=== PATIENT | female | born 1990 | race Caucasian/White ===

== ENCOUNTER 2017-01-01 15:08 | Observation (INO) | payer OTHER ==
[2017-01-01] MEDS ORDERED: Famotidine IV* 10 MG/ML 2 ML (20 mg) IV SLOW PU ONE (15:23)
[2017-01-01] MEDS ORDERED: diPHENhydraMINE IV* 50 MG/ML 1 ml VIAL (BENADRYL) IV ONE (15:24)
[2017-01-01] MEDS ORDERED: methylPREDNISolone SOD SUCC* 125 MG 2 ML VIAL IV ONE (15:33)
--- NOTE | 2017-01-01 18:55 | ED ---
Kb Cee Salem, scribed for Kwadwo Del Toro MD on 01/01/17 at 1520 . Allergic Reaction/Systemic - HPI Summary HPI Summary: Patient is a 26 y/o female who presents to the ED per EMS with an allergic reaction since a few hours ago. She states she received an allergy injection and felt her throat tighten following it. She reports she received 0.6 epi SC, Glucagon 100mL IM, Benadryl 50mg IM, Celestone 100mL and Xopenex nebulizer 0.63 DIRECTOR TRANSPORTATION. Pt reports no other sx. She states that there is a small chance she may be . PMHx of panic disorder. - History of Current Complaint Chief Complaint: EDAllergicReaction Time Seen by Provider: 01/01/17 15:14 Hx Obtained From: Patient Hx Last Menstrual Period: 2 WEEKS AGO Onset/Duration: Gradual Onset, Started hours ago, Still Present Timing: Constant Severity Initially: Moderate Severity Currently: Moderate Pain Intensity: 0 Pain Scale Used: 0-10 Numeric Location: Discrete @ - Throat. Aggravating Factor(s): Nothing Alleviating Factor(s): Antihistamines, Epinephrine Associated Signs And Symptoms: Positive: Throat Tightening - Allergies/Home Medications Allergies/Adverse Reactions: Allergies Allergy/AdvReac Type Severity Reaction Status Date / Time No Known Allergies Allergy Verified 08/14/15 20:24 PMH/Surg Hx/FS Hx/Imm Hx Respiratory History: Reports: Hx Asthma Sensory History: Reports: Hx Contacts or Glasses Denies: Hx Hearing Aid Opthamlomology History: Reports: Hx Contacts or Glasses Psychiatric History: Reports: Hx Anxiety, Hx Panic Disorder, Other Psychiatric Issues/Disorders - anxiety - Surgical History Surgery Procedure, Year, and Place: LABIAL HEMATOMA-2005, TONSILLECTOMY, CHOLECYSTECTOMY Hx Anesthesia Reactions: No Infectious Disease History: No Infectious Disease History: Denies: Traveled Outside the [place] in Last 30 Days - Family History Known Family History: Positive: Cardiac Disease, Hypertension, Diabetes, Other - Allergies. Family History: FHx of HLD - Social History Alcohol Use: None Hx Substance Use: No Substance Use Type: Reports: None Hx Tobacco Use: No Smoking Status (MU): Never Smoked Tobacco Have You Smoked in the Last Year: No Review of Systems Negative: Fever Positive: Other - Throat tightening. All Other Systems Reviewed And Are Negative: Yes Physical Exam - Summary Physical Exam Summary: The patient has no rash, no hives, no respiratory distress. She has a clear voice without hoarseness or drooling. Lips and tongue normal size. Triage Information Reviewed: Yes Vital Signs On Initial Exam: Initial Vitals Temp Pulse Resp BP Pulse Ox 98.2 F 122 20 163/89 100 01/01/17 15:10 01/01/17 15:10 01/01/17 15:10 01/01/17 15:10 01/01/17 15:10 Vital Signs Reviewed: Yes Appearance: Positive: Well-Appearing, No Pain Distress Skin: Positive: Warm Head/Face: Positive: Normal Head/Face Inspection Eyes: Positive: Normal, EOMI Neck: Positive: Supple, Nontender Respiratory/Lung Sounds: Positive: Clear to Auscultation, Breath Sounds Present Cardiovascular: Positive: Tachycardia. Negative: Murmur Abdomen Description: Positive: Nontender Musculoskeletal: Positive: Normal, Strength/ROM Intact Neurological: Positive: Normal, Sensory/Motor Intact, Alert, Oriented to Person Place, Time, CN Intact II-III Psychiatric: Positive: Normal - [place] Coma Scale Coma Scale Total: 15 Diagnostics - Vital Signs Vital Signs Temp Pulse Resp BP Pulse Ox 01/01/17 15:16 98.2 F 122 18 122/74 97 01/01/17 15:10 98.2 F 122 20 163/89 100 - Laboratory Lab Statement: Any lab studies that have been ordered have been reviewed, and results considered in the medical decision making process. - EKG 1517 EKG Interpretation: Sinus tachycardia @ 126 bpm. No STEMI. Re-Evaluation - Re-Evaluation First Eval Re-Evaluation Time: 15:37 Comment: the patient received 6 mg betamethsone IM per pile [facility] office. I discussed with out pharmacist. He states this is equivalent to 32mg solumedrol. She received this IM and it is variable in absorption that way. Therefore I am ordering 125mg of solumedrol IV at this time. Second Eval Re-Evaluation Time: 16:20 Third Eval Re-Evaluation Time: 17:11 Allergic Reaction Course/Dx - Course Course Of Treatment: 26 y/o female presents with throat tightening after an allergy injection. She reports she received 0.6 epi SC, glucagon 100mL IM, Benadryl 50mg IM, Celestone 100mL and Xopenex nebulizer 0.63 DIRECTOR TRANSPORTATION. She received Famotidine, Diphenhydramine, and Methylprednisolone in the ED. EKG reveals sinus tachycardia @ 126 bpm and no STEMI. - Diagnoses Provider Diagnoses: Anaphylactic reaction - Critical Care Time Critical Care Time: 30-74 min - critical care time 45 minutes Discharge - Discharge Plan Condition: Good Disposition: OTHER Discharge Disposition Comment: sign out anticipate discharge. Dr Singh 190 sign out to reeval Referrals: Kamron Babcock MD [Primary Care Provider] - The documentation as recorded by the Kb saleh Salem accurately reflects the service I personally performed and the decisions made by me, Kwadwo Del Toro MD.
[2017-01-01] MEDS ORDERED: NS 0.9% 1000 ML* 1,000 ML BOLUS ONE (21:45)
[2017-01-02] MEDS ORDERED: diPHENhydraMINE IV* 50 MG/ML 1 ml VIAL (BENADRYL) IV ONE (00:06)
[2017-01-02] MEDS ORDERED: LORazepam TAB(*) 1 MG PO ONE (00:07)
[2017-01-02] MEDS ORDERED: diPHENhydraMINE PO* 25 MG PO PRN (01:50)
[2017-01-02] MEDS ORDERED: Cetirizine* 10 MG TAB PO PRN (01:52)
[2017-01-02] MEDS ORDERED: Albuterol HFA INHALER* 8 gm MDI INH PRN (01:52)
[2017-01-02 07:16] VITALS: BP 126/76
--- NOTE | 2017-01-02 07:25 | PN ---
Hospitalist Progress Note Overnight events noted. Was paged multiple times this morning that patient wanted to leave immediately. Patient seen this morning. Refused to shake hands. Asked about her symptoms she initially stated "even if I did I wouldn't tell you ". Then subsequently stated she has felt some intermittent throat tightening overnight but the majority of her symptoms have resolved. Wants to leave, upset she did not get her anxiety medications. On exam, mild tachycardia, lungs CTA B/L, OP clear, patent. Suspect tachycardia may be due to a combination of anxiety and large doses of steroids the patient received. Will discharge home today (do not think patient needs to sign out AMA), may take Benadryl for additional symptoms. F/U with PCP
[2017-01-02] MEDS ORDERED: Sertraline* 25 MG TAB PO SCH (09:00)
[2017-01-02] MEDS ORDERED: Sertraline* 100 MG TAB PO SCH (09:00)
--- NOTE | 2017-01-02 13:52 | HP ---
HISTORY AND PHYSICAL: DATE OF ADMISSION: 01/02/2017. PRIMARY CARE PHYSICIAN: Kamron Babcock MD. CHIEF COMPLAINT: Chest tightness. HISTORY OF PRESENT ILLNESS: The patient is a 26-year-old woman who states she has multiple allergies to GRASS, POLLEN, etc., and was getting allergy shots yesterday when she developed throat and chest tightness. They apparently give her treatments there, but it was to no avail, so she was sent to the ER for further treatment. In the ER, she also received treatment and improved, but then after 6 hours, apparently developed chest tightness and throat tightness again. She denied any tongue swelling or wheezing or rash. She feels much better at this juncture. She has been admitted for observation because these symptoms appeared to recur. She has a past medical history for the allergies as noted earlier, PCOS, panic disorder and asthma. CURRENT MEDICATIONS: 1. Xyzal 5 mg daily as needed. 2. Acacia 60 mg daily. 3. Albuterol inhaler 2 puffs inhaled every 4 hours as needed. 4. Zoloft 125 mg daily. ALLERGIES: She has an allergy/adverse reaction to NEOMYCIN and BACITRACIN. FAMILY HISTORY: Mother is alive at 53, has allergies. Father is alive at 50, has diabetes and hypertension. SOCIAL HISTORY: No tobacco, alcohol or recreational drug use. She is a chemist internship. She is . She has 1 child. REVIEW OF SYSTEMS: A 14-point review of systems was completed with the patient. All pertinent positives and negatives are in the history of present illness, otherwise negative. PHYSICAL EXAMINATION GENERAL: Pleasant woman, lying in bed, in no acute distress. VITAL SIGNS: Blood pressure 120/65, pulse ox 100%, heart rate 107 beats per minute, temperature 98.2 degrees. HEENT: Normocephalic, atraumatic. Pupils are equal, round, and reactive to light. Moist mucous membranes. No evidence of tongue swelling. NECK: Supple. No JVD, bruits, palpable thyroid, or lymphadenopathy. CHEST: Clear to auscultation and percussion bilaterally. CARDIOVASCULAR: S1 and S2 appreciated. Increased rate, regular rhythm. ABDOMEN: Positive bowel sounds in all 4 quadrants. Soft, nontender, nondistended. EXTREMITIES: No cyanosis, clubbing, or edema. +2 peripheral pulses bilaterally. NEURO: Alert and oriented x3. Moves all extremities. SKIN: No rashes or abnormalities. DIAGNOSTIC STUDIES/LAB DATA: Pending. ASSESSMENT AND PLAN: 1. Possible allergic reaction. We are informed that this is anaphylaxis in the ER, but I am questioning this at this time. The patient has a history of panic disorder. I am suspecting that it was just her chest tightness and no actual obvious data on this that this may have been a panic attack. Nevertheless, I will observe the patient again for several more hours. If she is asymptomatic, she will likely go home and follow up with her PCP. 2. Depression and anxiety. Continue Zoloft. 3. FEN. Regular diet. 4. DVT prophylaxis. None. She is young and ambulatory. 5. The patient is a full code. TIME SPENT: Over 75 minutes was spent on this H and P; more than 40 minutes of which was spent in direct [id number] contact with the patient in evaluation, physical exam, counseling, and coordination of care. CC: Kamron Babcock MD.* [id number]/[facility] #: [id number] MTDD
--- NOTE | 2017-01-02 21:50 | DS ---
CC: Dr. Babcock DISCHARGE SUMMARY: DATE OF ADMISSION: 01/02/17 DATE OF DISCHARGE: 01/02/17 PRIMARY CARE PHYSICIAN: Dr. Babcock. PRINCIPAL DISCHARGE DIAGNOSES: 1. Allergic reaction. 2. Persistent panic attack. SECONDARY DIAGNOSES: 1. Asthma. 2. Anxiety. 3. Panic disorder. DISCHARGE MEDICATION REGIMEN: 1. Sertraline 125 mg by mouth daily. 2. Albuterol 2 puffs inhaled every 4 hours as needed for shortness of breath and wheezing. 3. Acacia 60 mg by mouth daily. 4. Levocetirizine 5 mg by mouth daily as needed for allergies. 5. Ativan 0.5 mg by mouth 3 times daily as needed for anxiety. 6. Propranolol 10 mg by mouth 3 times daily as needed for anxiety. HPI AND HOSPITAL SUMMARY: Please see the full history and physical by Dr. Leonardo Cortez for full deta ils. Briefly, Ms. Dan was an allergy appointment where she underwent an allergic medication injection. I am not clear as to exactly what the medication was that she received. However, there was some concern that she had allergic reaction to this. She reported some throat tightness and itch ing and chest discomfort. In the office, she received epinephrine, IM steroids, IM glucagon, Xopene x and she was sent to the hospital. Here in the ED, she also received IV Solu-Medrol as well as fam otidine and Benadryl. She had improvement in her symptoms. I was called to see the patient as soon as I arrived at the hospital due to her wanting to leave immediately. Apparently, overnight she rowan d become more and more anxious and agitated, seeming to center around the fact that she was unable t o have access to her home medications, particularly her Ativan as she felt like she was having an an xiety attack. When I went to evaluate the patient, she said that her symptoms had resolved for the most part. She said she still had some intermittent throat tightness. However, this looked fairly normal on exam and did not appreciate any wheezing or stridor. The patient wanted to leave the hosp ital, so I discharged her home with close PCP followup. She was instructed to take Benadryl for any further symptoms and to either call her PCP or return to the emergency department if she had any wo rsening of her symptoms. Again at the time of this dictation, I did not have the name of the medica tion that the patient received in the green ware caster's office. This will need to be found and added to he r allergy list. TIME SPENT: Total time spent on this discharge, 40 minutes. This is the summary of the hospitalization, please see the full medical record for further details. [id number]/[facility] #: [id number]
--- NOTE | 2017-01-05 16:26 | ED ---
I, Yandy German, scribed for Heidi Singh MD on 01/01/17 at 2359 . Progress - Progress Note Progress Note: Re-Eval at 2134 - Evaluated oxygen level and heart rate. Will order 1L fluids. Pt denies any CP or trouble breathing. Pt does not have any rashes. However, she does report that she has been experiencing hot flashes. Discussed with pt that she will be ready for discharge when her heart rate drops to around 110. Pt was agreeable. Re-Eval at 2358 - heart rate increased up to 148, pt d/c her own IV, pt is panicked. Awaiting hospitalist consult for admit. Consult with Dr. Cortez (Hospitalist) @ 0118 - He agrees to admit pt. Re-Evaluation - Re-Evaluation First Eval Re-Evaluation Time: 15:37 Comment: the patient received 6 mg betamethsone IM per controlled atmospheric [facility] office. I discussed with out pharmacist. He states this is equivalent to 32mg solumedrol. She received this IM and it is variable in absorption that way. Therefore I am ordering 125mg of solumedrol IV at this time. Second Eval Re-Evaluation Time: 16:20 Third Eval Re-Evaluation Time: 17:11 Course/Dx - Course Course Of Treatment: 26 y/o female presents with throat tightening after an allergy injection. 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 She received Famotidine, Diphenhydramine, and Methylprednisolone in the ED. EKG reveals sinus tachycardia @ 126 bpm and no STEMI. Pt admitted for further evaluation due to continued throat tightness and chest discomfort and persistent tachycardia despite hydration and treatment for allergy. Pt given 1mg ativan for anxiety, and hx panic attacks. - Diagnoses Provider Diagnoses: Anaphylactic reaction - Critical Care Time Critical Care Time: 30-74 min - critical care time 45 minutes The documentation as recorded by the mitraibDoctor lock Tahera accurately reflects the service I personally performed and the decisions made by me, Heidi Singh MD.
== END 2017-01-02 07:15 | disposition home or self-care (01) ==
LOC: ED 15:08 → MED 01-02 01:50
PROVIDERS: ADMIT Internal Medicine; ATTEND Hospitalist
DX: T78.40XA Allergy, unspecified, initial encounter (principal); T88.8XXA Other specified complications of surgical and medical care, not elsewhere classified, initial encounter; Y84.8 Other medical procedures as the cause of abnormal reaction of the patient, or of later complication, without mention of misadventure at the time of the procedure; F41.0 Panic disorder [episodic paroxysmal anxiety]; J45.909 Unspecified asthma, uncomplicated; F41.9 Anxiety disorder, unspecified; F32.9 Major depressive disorder, single episode, unspecified; I45.81 Long QT syndrome; R00.0 Tachycardia, unspecified; Z79.899 Other long term (current) drug therapy
CPT/HCPCS: 93005; 96361; 96374; 96375; 96376; 99291; A9270-GY; G0378; J1200; J2930

== ENCOUNTER 2017-04-29 13:18 | Emergency (ER) | payer MEDICAID, OTHER ==
[2017-04-29 13:25] VITALS: BP 129/83
--- NOTE | 2017-04-29 14:38 | RAD ---
Indication: Left flank pain, history of kidney stones. CT of the abdomen and pelvis was performed without IV contrast. Coronal and sagittal reconstructed images were obtained. The lung bases demonstrate no pleural fluid. The heart demonstrates a trace pericardial effusion. Liver is normal in size. It is diffusely decreased in density consistent with hepatic steatosis. No focal hepatic lesions or intrahepatic ductal dilatation is present. Patient status post cholecystectomy. Pancreas demonstrates no mass or pancreatic duct dilatation. Common duct is not dilated. Spleen is normal in size. No adrenal lesions are noted. The kidneys demonstrates no hydronephrosis in either kidney. No retroperitoneal adenopathy is noted. No dilated loops of bowel are noted. CT of the pelvis demonstrates stool throughout the colon. Normal appendix is visualized. No pelvic adenopathy is noted. The uterus and ovaries are grossly unremarkable. Urinary bladder is partially collapsed. Small lymph nodes are noted. IMPRESSION: NO EVIDENCE OF OBSTRUCTIVE UROPATHY. HEPATIC STEATOSIS. PATIENT IS STATUS POST CHOLECYSTECTOMY.
--- NOTE | 2017-04-29 14:59 | UC ---
Volodymyr Cee Angela, scribed for Dima Chavez MD on 04/29/17 at 1429 . General HPI - HPI Summary HPI Summary: This is a 26 y/o female presenting to [facility] c/o sudden onset of left sided intermittent flank pain that started 5 days ago. Pt reports that standing up aggravates her pain and sitting down alleviates her pain. She endorses associated pain in the LUQ. Pt denies any trauma to the area, heavy lifting. She states taking aleve, using ice, having acupuncture done and massage with no relief. Pt denies nausea, fever, chills, trauma, falls, rhinorrhea, sore throat , pain with deep inspirations. Pt does have a hx of kidney stones. - History of Current Complaint Chief Complaint: UCGeneralIllness Stated Complaint: BACK PAIN Time Seen by Provider: 04/29/17 13:52 Hx Obtained From: Patient Hx Last Menstrual Period: months ago pt has PCOS Onset/Duration: Sudden Onset Associated Signs & Symptoms: Positive: Abdominal Pain - Upper left quadrant.. Negative: Chest Pain, Fever, Headache, Nausea, SOB, Trauma, Vomiting - Allergy/Home Medications Allergies/Adverse Reactions: Allergies Allergy/AdvReac Type Severity Reaction Status Date / Time Bacitracin Allergy Rash Verified 04/29/17 13:25 Erythromycin Allergy Rash Verified 04/29/17 13:26 PMH/Surg Hx/FS Hx/Imm Hx Psychological History: Post Traumatic Stress Disorder - Surgical History Surgical History: Yes Surgery Procedure, Year, and Place: LABIAL HEMATOMA-2004, TONSILLECTOMY, CHOLECYSTECTOMY - Family History Known Family History: Positive: Cardiac Disease, Hypertension, Diabetes, Other - Allergies. Family History: FHx of HLD - Social History Alcohol Use: unknown Substance Use Type: None Smoking Status (MU): Never Smoked Tobacco Have You Smoked in the Last Year: No - Immunization History Most Recent Influenza Vaccination: 07/31/16 Most Recent Tetanus Shot: 06/04/16 Most Recent Pneumonia Vaccination: never Review of Systems Constitutional: Negative Skin: Negative Eyes: Negative ENT: Negative Respiratory: Negative Cardiovascular: Negative Gastrointestinal: Abdominal Pain - LUQ Genitourinary: Negative Motor: Negative Neurovascular: Negative Musculoskeletal: Other: - Left flank pain Neurological: Negative Psychological: Negative All Other Systems Reviewed And Are Negative: Yes Physical Exam Triage Information Reviewed: Yes Vital Signs: Initial Vital Signs Temp 98.3 F 04/29/17 13:20 Pulse 89 04/29/17 13:20 Resp 20 04/29/17 13:20 BP 129/83 04/29/17 13:20 Pulse Ox 99 04/29/17 13:20 Vital Signs Reviewed: Yes - Additional Comments The patient is well-nourished in no acute distress and in no acute pain. The skin is warm and dry and skin color reflects adequate perfusion. HEENT: The head is normocephalic and atraumatic. The pupils are equal and reactive. The conjunctivae are clear and without drainage. Nares are patent and without drainage. Mouth reveals moist mucous membranes and the throat is without erythema and exudate. The external ears are intact. The ear canals are patent and without drainage. The tympanic membranes are intact. Neck is supple with full range of motion and non-tender. There are no carotid bruits. There is no neck vein distension. Respiratory: Chest is non-tender. Lungs are clear to auscultation and breath sounds are symmetrical and equal. Cardiovascular: Hear is regular rate and rhythm. There is no murmur or rub auscultated. There is no peripheral edema and pulses are symmetrical and equal. Abdomen: The abdomen is soft. There is LUQ tenderness. There are normal bowel sounds heard in all four quadrants and there is no organomegaly palpated. Musculoskeletal: There is no back pain noted. Extremities are non-tender with full range of motion. There is good capillary refill. There is reproducible pain in the mid to lower thoracic area with palpation. Neurological: Patient is alert and oriented to person, place and time. The patient has symmetrical motor strength in all four extremities. Cranial nerves are grossly intact. Deep tendon reflexes are symmetrical and equal in all four extremities. Psychiatric: The patient has an appropriate affect and does not exhibit any anxiety or depression. Patient is cooperative. Diagnostics - Radiology CT Abd/Pel Xray Interpretation: No Acute Changes - Impression: no evidence of obstructive uropathy. Radiology Interpretation Completed By: Radiologist Course/Dx - Course Course Of Treatment: I went to review cat scan finding with the pt and pt was not happy that we could not find a reason for her pain. It was explained to the pt her pain was of musculoskeletal nature. She was offered muscle relaxant and pain medications. She stated she couldn't take them because it makes her feel tired. Pt was discharged with diagnosis of back pain and was recommended to take anti-inflammatories or tylenol. - Differential Dx - Multi-Symptom Differential Diagnoses: Other - renal lithiasis, pyleonephritis, constipation Provider Diagnoses: Back pain, constipation Discharge - Discharge Plan Condition: Stable Disposition: HOME Patient Education Materials: Back Pain (ED) Referrals: Kamron Babcock MD [Primary Care Provider] - Additional Instructions: Continue taking tylenol. Please follow up with your family doctor to assure symptoms are improving. The documentation as recorded by the Volodymyr saleh Angela accurately reflects the service I personally performed and the decisions made by , Dima Chavez MD.
== END 2017-04-29 14:50 | disposition home or self-care (01) ==
LOC: UCEAST 13:18
DX: M54.9 Dorsalgia, unspecified (principal); K59.00 Constipation, unspecified; R10.12 Left upper quadrant pain; Z32.02 Encounter for pregnancy test, result negative; F43.10 Post-traumatic stress disorder, unspecified; Z90.49 Acquired absence of other specified parts of digestive tract; Z88.1 Allergy status to other antibiotic agents; Z88.3 Allergy status to other anti-infective agents
CPT/HCPCS: 74176; 81003; 84702; 99211; G0463

== ENCOUNTER 2017-04-29 15:29 | Emergency (ER) | payer MEDICAID ==
[2017-04-29 15:35] VITALS: BP 138/94
--- NOTE | 2017-04-29 16:28 | UC ---
Fang Cee SooYoung, scribed for Misael Saul MD on 04/29/17 at 1607 . Back Pain HPI - HPI Summary HPI Summary: A 26 y/o F presents to [facility] with c/o low back pain onset five days ago. Radiates deeply into body. Denies recent trauma or PMHx of back problems. Pt states she' s tried everything such as chiropractor, massage, anti-inflammatories, rest, all to no relief. Aggravating factors: standing or sitting upright. Twisting, turning does not aggravate the pain. Alleviating factors: laying down. Denies SOB, dysuria, hematuria, changes in BM. Pt was seen at [facility] earlier this afternoon for same sx. She notes taking Depakote recently and another Rx. Recent stress. - History of Current Complaint Chief Complaint: UCBackPain Stated Complaint: BACK PAIN Time Seen by Provider: 04/29/17 16:03 Hx Obtained From: Patient Hx Last Menstrual Period: unk Onset/Duration: Lasting Days - onset 5 days ago, Still Present Timing: Constant Severity Initially: Moderate Severity Currently: Moderate Pain Intensity: 6 Pain Scale Used: 0-10 Numeric Back Pain: Is Diffuse - lower back Character: Sharp, Aching, Spasmodic, Burning Alleviating: Position Associated Signs And Symptoms: Positive: Negative - Allergies/Home Medications Allergies/Adverse Reactions: Allergies Allergy/AdvReac Type Severity Reaction Status Date / Time Bacitracin Allergy Rash Verified 04/29/17 13:25 Erythromycin Allergy Rash Verified 04/29/17 13:26 PMH/Surg Hx/FS Hx/Imm Hx Previously Healthy: No Respiratory History: Asthma Psychological History: Anxiety, Other Other Psychological History: panic disorder - Surgical History Surgical History: Yes Surgery Procedure, Year, and Place: LABIAL HEMATOMA-2004, TONSILLECTOMY, CHOLECYSTECTOMY - Family History Known Family History: Positive: Cardiac Disease, Hypertension, Diabetes, Other - Allergies. Family History: FHx of HLD - Social History Occupation: Unemployed - HOMEMAKER Lives: With Family Alcohol Use: None Substance Use Type: None Smoking Status (MU): Never Smoked Tobacco Have You Smoked in the Last Year: No - Immunization History Most Recent Influenza Vaccination: 07/31/16 Most Recent Tetanus Shot: 06/04/16 Most Recent Pneumonia Vaccination: never Review of Systems Constitutional: Negative Skin: Negative Eyes: Negative ENT: Negative Respiratory: Negative Cardiovascular: Negative Gastrointestinal: Negative Genitourinary: Negative Motor: Negative Neurovascular: Negative Musculoskeletal: Other: - back pain Neurological: Negative Psychological: Negative All Other Systems Reviewed And Are Negative: Yes Physical Exam Triage Information Reviewed: Yes Appearance: Well-Appearing, No Pain Distress Vital Signs: Initial Vital Signs Temp 98.7 F 04/29/17 15:32 Pulse 77 04/29/17 15:32 Resp 16 04/29/17 15:32 BP 138/94 04/29/17 15:32 Pulse Ox 100 04/29/17 15:32 Vital Signs Reviewed: Yes Eyes: Positive: Other: - EOMI/CARLIE ENT: Positive: Hearing grossly normal Neck: Positive: Supple, Nontender Respiratory: Positive: Chest non-tender, Lungs clear, Normal breath sounds Cardiovascular: Positive: RRR Abdomen Description: Positive: Soft, Other: - Mild tenderness to epigastrium. Musculoskeletal: Positive: Strength Intact, ROM Intact. Negative: Other: - neg : back tenderness Neurological Exam: Normal - sensory/motor intact Neurological: Positive: Alert - A&Ox3 Psychological: Positive: Age Appropriate Behavior Skin Exam: Normal - warm, dry, color reflects adequate perfusion Skin: Negative: rashes Back Pain Course/Dx - Course Course Of Treatment: Pt medications reviewed this week. Pre-Hypertensive BP reading (138/94); patient referred to PCP for follow-up. ON EXAM, PATIENT HAS MINIMAL EPIGASTRIC DISCOMFORT TO PALPATION. I DISCUSSED POSSIBLE CAUSES OF BACK PAIN TO INCLUDE POSTERIOR REFERAL OF STOMACH PAIN. THE PLAN IS TO TREAT WITH OMEPRAZOLE AND CARAFATE AND F/U PMD; GET REEVAL IF WORSE OR QUESTIONS/CONCERNS. - Differential Dx/Diagnosis Provider Diagnoses: UPPER LUMBAR BACK PAIN Discharge - Discharge Plan Condition: Stable Disposition: HOME Prescriptions: Omeprazole CAP* [Prilosec CAP* 20 MG] 20 mg PO BID #30 cap. Sucralfate TAB* [Carafate*] 1 gm PO QID #60 tab Patient Education Materials: Back Pain (ED) Referrals: Kamron Babcock MD [Primary Care Provider] - 1 Day (Follow up in 1 day to 4 weeks for futher blood pressure evaluation.) Additional Instructions: Your blood pressure reading today was 138/98, which is PRE-HYPERTENSIVE. Follow- up with your primary care provider within 4 weeks for blood pressure readings and further evaluation. FOLLOW UP WITH YOUR DOCTOR. GET RECHECKED FOR ANY WORSENING OF YOUR CONDITION; PAIN, FEVER, VOMITING, BLOOD IN YOU STOOL, YOU FEEL ILL OR QUESTIONS OR CONCERNS. The documentation as recorded by the Fang saleh SooYoung accurately reflects the service I personally performed and the decisions made by me, Misael Saul MD.
== END 2017-04-29 16:30 | disposition home or self-care (01) ==
LOC: UCEAST 15:29
DX: M54.5 Low back pain (principal); J45.909 Unspecified asthma, uncomplicated; F41.9 Anxiety disorder, unspecified; Z88.1 Allergy status to other antibiotic agents; Z88.3 Allergy status to other anti-infective agents
CPT/HCPCS: 99212; G0463

== ENCOUNTER 2017-09-15 19:55 | Emergency (ER) | payer OTHER ==
[2017-09-16] MEDS ORDERED: Ketorolac INJ* 60 MG/2 ML VIAL IM ONE (01:01)
--- NOTE | 2017-09-16 01:08 | ED ---
GI/ HPI - HPI Summary HPI Summary: Pt here w/ RLQ pain and Rt flank pain - aching and constant - started at same time. When pain is bad, triggers nausea - no nausea at present and no nausea when her pain is controlled - no vomiting - reduced appetite but tolerating PO. Pain started Friday and then dissipated. Returned again yesterday and was persistent so went to [facility]. Feels best when she lies on Rt side. She's had normal BM's for her. Spoke w/ Salome LOPEZ, at [facility] who saw pt yesterday. She reports a urine was attained and was normal except for trace blood (lab faxed over). No labs were drawn as pt was a "difficult stick". An IV line was eventually placed and she received ketoralac here which reduced pt pain. A CT scan impression report was faxed over and revealed "Fatty liver, no focal abdominal or pelvic abnormality. Prominent adnexa consistent with w/o PCOS. Question pericardial effusion". Full report: CT abdomen: "normal size fatty liver, gallbladder not identified (pt is s/p cholecystectomy). Normal spleen, pancreas, and adrenal glands. Normal kidneys, no evidence of stones or hydronephrosis. No perirenal abnormalities. No evidence of suspicious adenopathy or ascites. Normal aorta. Normal upper abdominal bowel pattern." CT pelvis: "no evidence of pelvic mass or adenopathy. No free pelvic fluid. Prominent adnexa...Nondistended bladder. No evidence of distal urinary tract calculi. Normal bowel pattern, normal appendix not clearly identified however no secondary signs of appendicitis are observed. No acute bony abnormalities." Salome states she reviewed the CT image herself as well and the only abnormal finding she viewed was a possible stone in the bladder. Pt has a h/o PCOS and miscarriage w/ irregular menstruation. JOHN Mcmahon, who is familiar w/ pt, reports pt is non-compliant w/ metformin as well as other mental health medications. Salome states she had a discussion with pt about possibly experiencing Mittelschmerz however pt reports she's familiar w/ this pain and it only lasts 5-10 minutes then resolves. Pain coming and going then returning and persisting over the course of days is not typical of her ovulation pain. She also admits she's sexually active with her only - no condoms. H/o BV but nothing else re: vaginal infections. Denies vaginal irritation, d/c, itching, dysuria, urinary frequency, urinary incontinence. A pelvic exam was not performed at [facility] but pt agrees to have one done here. A test was also performed at [facility] - negative per JOHN Mcmahon ( results sent as well). See reports for all details. - History of Current Complaint Chief Complaint: EDAbdPain Time Seen by Provider: 09/15/17 23:02 Stated Complaint: RT SIDED LOWER ABD/ BACK PAIN Hx Obtained From: Patient Hx Last Menstrual Period: unk Pain Intensity: 9 - Additional Pertinent History Primary Care Physician: [id number] - Allergy/Home Medications Allergies/Adverse Reactions: Allergies Allergy/AdvReac Type Severity Reaction Status Date / Time Bacitracin Allergy Rash Verified 04/29/17 13:25 Erythromycin Allergy Rash Verified 04/29/17 13:26 PMH/Surg Hx/FS Hx/Imm Hx Previously Healthy: Yes Endocrine/Hematology History: Denies: Hx Anticoagulant Therapy, Hx Blood Disorders, Hx Thyroid Disease, Hx Anemia Respiratory History: Reports: Hx Asthma History: Reports: Other Problems/Disorders - PCOS Sensory History: Reports: Hx Contacts or Glasses Denies: Hx Hearing Aid Opthamlomology History: Reports: Hx Contacts or Glasses Psychiatric History: Reports: Hx Anxiety, Hx Panic Disorder, Hx Post Traumatic Stress Disorder, Other Psychiatric Issues/Disorders - anxiety - Surgical History Surgery Procedure, Year, and Place: LABIAL HEMATOMA-2004, TONSILLECTOMY, CHOLECYSTECTOMY Hx Anesthesia Reactions: No Infectious Disease History: No Infectious Disease History: Denies: Hx Clostridium Difficile, Hx Hepatitis, Hx Human Immunodeficiency Virus (HIV), Hx of Known/Suspected MRSA, Hx Shingles, Hx Tuberculosis, Hx Known/ Suspected VRE, Hx Known/Suspected VRSA, History Other Infectious Disease, Traveled Outside the [place] in Last 30 Days - Family History Known Family History: Positive: Cardiac Disease, Hypertension, Diabetes, Other - Allergies. Family History: FHx of HLD - Social History Lives: With Family Alcohol Use: None Hx Substance Use: No Substance Use Type: Reports: None Hx Tobacco Use: No Smoking Status (MU): Never Smoked Tobacco Have You Smoked in the Last Year: No Review of Systems Constitutional: Negative Negative: Fever, Chills, Fatigue Eyes: Negative Negative: Photophobia, Blurred Vision, Diplopia, Drainage, Erythema ENT: Negative Cardiovascular: Negative Negative: Palpitations, Chest Pain Respiratory: Negative Negative: Shortness Of Breath, Cough Positive: Abdominal Pain, Nausea. Negative: Vomiting, Diarrhea Positive: see HPI Musculoskeletal: Negative Skin: Negative Neurological: Negative Psychological: Normal All Other Systems Reviewed And Are Negative: Yes Physical Exam Triage Information Reviewed: Yes Vital Signs On Initial Exam: Initial Vitals Temp Pulse Resp BP Pulse Ox 98.1 F 74 20 135/86 99 09/15/17 20:02 09/15/17 20:02 09/15/17 20:02 09/15/17 20:02 09/15/17 20:02 Vital Signs Reviewed: Yes Appearance: Positive: Well-Appearing, No Pain Distress - appears comfortable resting on her Rt side on stretcher - does appear to have pain w/ adjusting herself to sit upright, Obese Skin: Positive: Warm, Dry Head/Face: Positive: Normal Head/Face Inspection Eyes: Positive: Normal, EOMI, Conjunctiva Clear - anicteric sclera ENT: Positive: Pharynx normal - mucosa moist Neck: Positive: Supple Respiratory/Lung Sounds: Positive: Clear to Auscultation, Breath Sounds Present. Negative: Rales, Rhonchi, Stridor, Wheezes Cardiovascular: Positive: Normal, RRR, S1, S2. Negative: Murmur, Rub, Leg Edema Left, Leg Edema Right Abdomen Description: Positive: No Organomegaly, Soft, Other: - RLQ TTP - no rebounding. Negative: CVA Tenderness (R), CVA Tenderness (L), Peritoneal Signs , Pulsatile Mass, Splenomegaly Bowel Sounds: Positive: Present Pelvic Exam: Positive: external exam normal, no cerv. motion tender, discharge - yellow/white mucous d/c, tender adnexa - Rt - internal more tender that external palpation. Negative: active bleeding, lesions Musculoskeletal: Positive: Normal, Strength/ROM Intact Neurological: Positive: Normal, Sensory/Motor Intact, Alert, Oriented to Person Place, Time, CN Intact II-III Psychiatric: Positive: Normal Diagnostics - Vital Signs Vital Signs Temp Pulse Resp BP Pulse Ox 09/16/17 00:24 98.4 F 79 19 107/71 99 09/15/17 22:06 97.8 F 66 20 133/81 100 09/15/17 20:02 98.1 F 74 20 135/86 99 - Laboratory Lab Statement: Any lab studies that have been ordered have been reviewed, and results considered in the medical decision making process. Re-Evaluation - Re-Evaluation First Eval Change: Improved - pain is improved w/ toradol and resting on side GIGU Course/Dx - Course Course Of Treatment: TVUS w/o torsion - reports states positive vascular flow w / venous and arterial waveform. B/L ovaries w/ multiple peripheral follicles however Rt measure 5.3cm at it's largest dimension. This is most likey cause of pt's pain. Conversation about restarting metformin to reduce cysts. She is also trying to get so this medication will be helpful. Endometrium is 11mm which is mildly thickened. Pt admits she's due for a period at some point and this correlates. Plans to f/u w/ OBGYN this week. Will return to ED if sx worsen. - Diagnoses Provider Diagnoses: Right ovarian enlargement, PCOS (polycystic ovarian syndrome), Endometrial thickening on ultra sound Discharge - Discharge Plan Condition: Stable Disposition: HOME Patient Education Materials: Polycystic Ovarian Syndrome (ED) Forms: *Work Release Referrals: Kamron Babcock MD [Primary Care Provider] - Additional Instructions: Your pain appears to be coming from your Right ovary which is larger than your left with multiple follicles. This may be treated with NSAID's (naproxen 500mg every 12 hours with food) and restarting your metformin. Follow-up with OBGYN to discuss that diarrhea from metformin is a road block for use although you have acclimated in the past - may just take time to re acclimate. Your endometrium is also mildly thick at 11cm - followup with OBGYN about lack of period. Call today to schedule an appointment. *If you develop worsening of pain despite recommendations, fever, chills, vomiting, heavy painful vaginal bleeding, return to ED
[2017-09-16 03:23] VITALS: BP 103/53
--- NOTE | 2017-09-16 07:51 | RAD ---
HISTORY: Right adnexal tenderness, polycystic ovarian syndrome COMPARISONS: None TECHNIQUE: Multiple transverse and longitudinal ultrasound images were obtained of the pelvis using grayscale, color Doppler, and spectral Doppler imaging using the endovaginal transducer. FINDINGS: UTERUS: The uterus measures 7.5 x 4.3 x 5.2 cm. The uterus is normal in shape, size, contour, and echotexture. ENDOMETRIUM: The endometrial stripe is smooth. The endometrium measures 1.1 cm in thickness. CUL-DE-SAC: There is no free fluid within the cul-de-sac. RIGHT OVARY: The right ovary measures 5.3 x 3.5 x 2.3 cm. Multiple follicles are noted predominantly within the periphery of the right ovary. Normal arterial and venous waveforms are identifiable within the ovary on spectral Doppler imaging. LEFT OVARY: The left ovary measures 3.6 x 2.8 x 2.5 cm. Multiple follicles are noted, predominantly within the periphery of the left ovary. Normal arterial and venous waveforms are identifiable within the ovary on spectral Doppler imaging. BLADDER: The bladder is not well visualized. OTHER: None IMPRESSION: 1. NO SONOGRAPHIC FEATURES OF TORSION. PLEASE NOTE THAT PARTIAL OR INTERMITTENT TORSION MAY BE SONOGRAPHICALLY NORMAL. 2. FINDINGS CONSISTENT WITH THE GIVEN HISTORY OF POLYCYSTIC OVARIAN SYNDROME.
== END 2017-09-16 03:22 | disposition home or self-care (01) ==
LOC: ED 19:55
DX: N83.8 Other noninflammatory disorders of ovary, fallopian tube and broad ligament (principal); R10.31 Right lower quadrant pain; R11.0 Nausea; E28.2 Polycystic ovarian syndrome
CPT/HCPCS: 76830; 87480; 87491; 87510; 87591; 87661; 96372; 99282; J1885

== ENCOUNTER 2023-10-05 17:04 | Observation (INO) ==
[2023-10-05 19:42] LABS: ABS Eosinophils 0.1 10^3/uL (0.0-0.5); ABS Lymphocytes 3.6 10^3/uL (1.0-4.8); ABS Monocytes 0.5 10^3/uL (0.0-0.9); ABS Neutrophils 5.3 10^3/uL (1.5-7.6); ABS Nucleated RBC 0.01 10^3/ul; Eosinophil % 1.3 %; Hematocrit 39.6 % (35-45); Hemoglobin 13.8 g/dL (11.5-14.3); Mean Corpuscular Hemoglobin 30.2 pg (27-33); Mean Corpuscular Hgb Conc 34.8 g/dL (31-36); Mean Corpuscular Volume 86.7 fL (80-97); Nucleated Red Blood Cells % 0.1 %/100WBC (0.0-0.8); Platelet Count 327 10^3/uL (150-450); Red Blood Count 4.57 10^6/uL (3.63-4.92); White Blood Count 9.6 10^3/uL (3.8-11.8)
[2023-10-05 19:53] LABS: Urine Appearance Clear; Urine Bilirubin Negative (Negative); Urine Blood Negative (Negative); Urine Color Yellow; Urine Glucose Negative (Negative); Urine Ketones Negative (Negative); Urine Nitrite Negative (Negative); Urine Protein Negative (Negative); Urine Specific Gravity 1.015 (1.002-1.030); Urine Urobilinogen Negative (Negative)
[2023-10-05 20:07] LABS: Albumin 4.4 g/dL (3.2-5.2); Albumin/Globulin Ratio 1.5 (1-3); C Reactive Protein 2.56 mg/L (<8.01); Calcium 9.5 mg/dL (8.6-10.3); Creatinine, Serum 0.7 mg/dL (0.51-0.95); Globulin 2.9 g/dL (2-4); Potassium 3.7 mmol/L (3.5-5.0); Total Bilirubin 0.4 mg/dL (0.2-1.0); Total Protein 7.3 g/dL (6.4-8.9)
[2023-10-05 20:13] LABS: HCG Pregnancy 0.79 mIU/mL
[2023-10-05] MEDS ORDERED: Ondansetron ODT 4 mg TAB 4 MG TAB SL ONE (20:38)
[2023-10-05] MEDS ORDERED: oxyCODONE/Acetamin 5/325 mg TAB PO ONE (20:38)
[2023-10-05] MEDS ORDERED: Iohexol 350 (CONTRAST) 500 ML MDV IV ONE (21:45)
[2023-10-05] MEDS ORDERED: Morphine 4 MG/ML VIAL (1 ml) IV ONE (22:47)
[2023-10-06] MEDS ORDERED: HYDROmorphone 1 MG/1 ML SYRINGE IV SLOW PU ONE (00:02)
[2023-10-06] MEDS ORDERED: Morphine 2 MG/ML SYRINGE IV PRN (01:00)
[2023-10-06] MEDS ORDERED: Lactated Ringers 1000 ml BAG 1,000 ML IV SCH ×2 (01:00→07:00)
[2023-10-06] MEDS ORDERED: Albuterol HFA INHALER 8 gm MDI INH PRN ×2 (01:00→18:02)
[2023-10-06 02:14] LABS: Rapid COVID-19 Molecular Undetected (Undetected)
[2023-10-06 02:16] LABS: Influenza A Molecular Negative (Negative); Influenza B Molecular Negative (Negative)
[2023-10-06] MEDS ORDERED: Ondansetron 4 mg VIAL 2 MG/ML 2 ml VIAL IV ONE (07:18)
[2023-10-06 08:12] LABS: Calcium 8.6 mg/dL (8.6-10.3); Creatinine, Serum 0.71 mg/dL (0.51-0.95); eGFR CKD-EPI 115.1 (>60)
[2023-10-06] MEDS ORDERED: Iohexol 180 (CONTRAST) 10 ML SDV IV ONE (08:37)
[2023-10-06] MEDS ORDERED: fentaNYL 100 mcg/2 ml 50 MCG/ML VIAL ONE (08:52)
[2023-10-06] MEDS ORDERED: Lidocaine 2% PF 5 ML VIAL ONE (08:52)
[2023-10-06] MEDS ORDERED: Propofol 10 MG/ML 20 ML BTL ONE (08:52)
[2023-10-06] MEDS ORDERED: Midazolam 2 mg/2 ml VIAL 1 mg/ml 2 ml VIAL (2 mg) ONE (08:52)
[2023-10-06] MEDS ORDERED: DULoxetine DR 20 mg CAP PO SCH (09:00)
[2023-10-06] MEDS ORDERED: Dexamethasone IV 4 MG/ML VIAL 1 ml VIAL ONE (09:08)
[2023-10-06] MEDS ORDERED: Ondansetron 4 mg VIAL 2 MG/ML 2 ml VIAL ONE (09:08)
[2023-10-06] MEDS ORDERED: oxyCODONE/Acetamin 5/325 mg TAB ONE (10:59)
[2023-10-06] MEDS ORDERED: Naloxone 0.4 mg VIAL 0.4 mg/ml 1 ml VIAL IV PRN (12:05)
[2023-10-06] MEDS: CMCS: FluvoxaMINE 50 mg TAB (NF) PO SCH (12:47)
[2023-10-06 16:50] LABS: Hematocrit 38.4 % (35-45); Hemoglobin 13.4 g/dL (11.5-14.3)
[2023-10-06] MEDS ORDERED: Senna TAB 8.6 mg TAB PO PRN (18:22)
[2023-10-06] MEDS ORDERED: Polyethylene Glycol 3350 17 GM PACKET PO PRN (18:22)
[2023-10-07 06:06] LABS: Hemoglobin 12.6 g/dL (11.5-14.3); Mean Corpuscular Hemoglobin 30.3 pg (27-33); Mean Corpuscular Hgb Conc 35.1 g/dL (31-36); Mean Corpuscular Volume 86.3 fL (80-97); Mean Platelet Volume 7.2 fL (7.5-11.2); Platelet Count 273 10^3/uL (150-450); Red Blood Count 4.17 10^6/uL (3.63-4.92); White Blood Count 8.7 10^3/uL (3.8-11.8)
[2023-10-07 06:26] LABS: Calcium 8.8 mg/dL (8.6-10.3); Creatinine, Serum 0.72 mg/dL (0.51-0.95); Potassium 3.9 mmol/L (3.5-5.0); eGFR CKD-EPI 113.1 (>60)
[2023-10-07] MEDS: CMCS: FluvoxaMINE 50 mg TAB (NF) PO SCH (07:56)
[2023-10-07] MEDS ORDERED: DULoxetine DR 30 mg CAP PO SCH (09:00)
[2023-10-07] MEDS ORDERED: Senna TAB 8.6 mg TAB PO SCH (09:00)
[2023-10-07 09:43] VITALS: BP 127/85
== END 2023-10-07 12:15 | disposition home or self-care (01) ==
LOC: EDHOLD 17:04 → ED 17:04 → SUATTDRO 10-06 00:58 → SSU 10-06 07:50
PROVIDERS: ADMIT Internal Medicine; ATTEND Hospitalist